=== PATIENT | female | born 1945 | race Caucasian/White ===

== ENCOUNTER 2018-04-12 12:00 | Inpatient (IN) | payer MEDICARE ==
[~2018-04-12] VITALS: Ht 170.2 cm; Wt 108.2 kg
[2018-04-12 11:40] VITALS: BP 156/69
[2018-04-12 11:57] LABS: BASOPHILS % (AUTO) 1.1 % (0.0-5.0); EOSINOPHILS % (AUTO) 2.4 % (0.0-8.0); HEMATOCRIT 35.7 % (36-48); LYMPHOCYTES % (AUTO) 19.2 % (21.0-51.0); MEAN CORPUSCULAR HEMOGLOBIN 26.4 pg (27.0-33.0); MEAN CORPUSCULAR HGB CONC 32.3 g/dL (32.0-36.0); MEAN CORPUSCULAR VOLUME 81.8 fL (79-99); MONOCYTES % (AUTO) 7.6 % (3.0-13.0); NEUTROPHILS % (AUTO) 69.7 % (40.0-77.0); NUCLEATED RED BLOOD CELLS 0.1 % (0.0-0.19); PLATELET COUNT (AUTO) 363 K/uL (130-400); RED BLOOD CELL COUNT(AUTO) 4.36 MIL/uL (4.00-5.50); RED CELL DISTRIBUTION WIDTH 14.8 % (11.0-15.5); WHITE BLOOD COUNT (AUTO) 10.8 K/uL (4.8-10.8)
[2018-04-12 12:04] LABS: CREATININE 1.3 mg/dL (0.5-1.5); POTASSIUM 4.3 mmol/L (3.5-5.1)
[2018-04-12] MEDS ORDERED: HUM10VIA6 SQ ×3 (12:34)
[2018-04-12] MEDS ORDERED: AEC81 PO (12:34)
[2018-04-12] MEDS ORDERED: METF-446 PO (12:34)
[2018-04-12] MEDS ORDERED: LEVO125T11 PO (12:34)
[2018-04-12] MEDS ORDERED: INVOK100TB PO (12:34)
[2018-04-12] MEDS ORDERED: ATEN1TAB4 PO (12:34)
[2018-04-12] MEDS ORDERED: RAMI5CAP66 PO (12:34)
[2018-04-12] MEDS ORDERED: ATOR40TA71 PO (12:34)
[2018-04-12] MEDS ORDERED: CYAN10009 PO (12:34)
[2018-04-12] MEDS ORDERED: CEFAZOLIN SODIUM 1 GM VIAL IVP SCH (13:15)
[2018-04-14] VITALS (24 sets, daily range): BP systolic 134–183; BP diastolic 68–90
[2018-04-14 06:36] LABS: BASOPHILS % (AUTO) 1.1 % (0.0-5.0); EOSINOPHILS % (AUTO) 2.6 % (0.0-8.0); HEMATOCRIT 34.3 % (36-48); MEAN CORPUSCULAR HEMOGLOBIN 26.6 pg (27.0-33.0); MEAN CORPUSCULAR HGB CONC 32.6 g/dL (32.0-36.0); MEAN CORPUSCULAR VOLUME 81.5 fL (79-99); MONOCYTES % (AUTO) 9.8 % (3.0-13.0); NEUTROPHILS % (AUTO) 66.5 % (40.0-77.0); PLATELET COUNT (AUTO) 349 K/uL (130-400); RED BLOOD CELL COUNT(AUTO) 4.21 MIL/uL (4.00-5.50); RED CELL DISTRIBUTION WIDTH 14.7 % (11.0-15.5); WHITE BLOOD COUNT (AUTO) 10.9 K/uL (4.8-10.8)
[2018-04-14] MEDS ORDERED: DURAMORPH PF1 MG/ML 10ML AMP IV ONE (06:36)
[2018-04-14] MEDS ORDERED: BUPIVACAINE/EPI/PF 0.25% 50 ML VIAL ONE (06:36)
[2018-04-14] MEDS ORDERED: THROMBIN-JMI 20000 UNIT KIT TP ONE (06:37)
[2018-04-14] MEDS ORDERED: BACITRACIN 50,000 UNIT VIAL ONE (06:37)
[2018-04-14] MEDS ORDERED: LACTATED RINGERS 1000ML 0 ML IV ONE (06:45)
[2018-04-14] MEDS ORDERED: CEFAZOLIN SODIUM 1 GM VIAL ONE (06:45)
[2018-04-14] MEDS ORDERED: SODIUM CHLORIDE 0.9% 1000ML 1,000 ML IV ONE (06:46)
[2018-04-14 06:53] LABS: CREATININE 1.2 mg/dL (0.5-1.5); POTASSIUM 3.8 mmol/L (3.5-5.1)
[2018-04-14] MEDS ORDERED: LIDOCAINE PF 2% 5ML ABBOJECT ONE (06:57)
[2018-04-14] MEDS ORDERED: DEXAMETHASONE SOD PHOSPHATE 10MG/ML 1ML VIAL ONE ×2 (06:57→07:00)
[2018-04-14] MEDS ORDERED: GLYCOPYRROLATE 1 MG/5 ML SYRINGE ONE (06:58)
[2018-04-14] MEDS ORDERED: PROPOFOL 10 MG/ML 20ML VIAL IV ONE (06:58)
[2018-04-14] MEDS ORDERED: MIDAZOLAM HCL 1 MG/ML 2ML VIAL ONE (06:58)
[2018-04-14] MEDS ORDERED: NEOSTIGMINE 5MG/5ML SYR IV ONE (06:59)
[2018-04-14] MEDS ORDERED: ROCURONIUM 10MG/1ML SYR 10 MG/ML ML ONE (06:59)
[2018-04-14] MEDS ORDERED: ONDANSETRON HCL 4 MG/2 ML VIAL ONE (06:59)
[2018-04-14] MEDS ORDERED: FENTANYL CITRATE PF 50 MCG/1 ML 2ML VIAL ONE ×2 (06:59→07:52)
[2018-04-14] MEDS ORDERED: EPHEDRINE SULFATE 50 MG/ML AMPULE ONE (07:01)
[2018-04-14] MEDS ORDERED: GENTAMICIN 80 MG/NS 100 ML PB 100 ML IV ONE (07:57)
[2018-04-14] MEDS ORDERED: LACTATED RINGERS 1000ML 1,000 ML IV SCH (10:11)
[2018-04-14] MEDS ORDERED: PROMETHAZINE HCL 25 MG/ML 1ML AMPULE IM PRN (10:15)
[2018-04-14] MEDS ORDERED: SODIUM CHLORIDE 0.9% 10 ML VIAL IVP PRN (10:15)
[2018-04-14] MEDS ORDERED: HYDROCODONE/ACETAMINOPHEN 5/325 MG TAB PO PRN (10:15)
[2018-04-14] MEDS ORDERED: MORPHINE SULFATE 2 MG/ML 1ML SYG IVP PRN (10:15)
[2018-04-14] MEDS ORDERED: LABETALOL 20 MG/4 ML DISP.SYRIN IV ONE (10:45)
[2018-04-14] MEDS: DEXAMETHASONE SOD PHOSPHATE 4 MG/ML 1ML VIAL IVP SCH ×3 (11:30→21:22)
[2018-04-14] MEDS ORDERED: INSULIN HUMULIN 70/30 100 UNIT/ML 3ML SQ SCH ×3 (12:00→21:00)
[2018-04-14] MEDS ORDERED: DEXTROSE 50%-WATER 50 ML DISP.SYRIN IV PRN (12:15)
[2018-04-14] MEDS ORDERED: GLUCAGON 1MG KIT 1 MG ML IM PRN (12:15)
[2018-04-14] MEDS: INSULIN HUMULIN R 100 UNIT/ML 3ML SQ SCH ×3 (13:16→21:21)
[2018-04-14] MEDS ORDERED: PHARMACY COMMUNICATION MISC SCH (13:30)
[2018-04-14] MEDS ORDERED: INSULIN HUMULIN R 100 UNIT/ML 3ML SQ SCH (16:30)
[2018-04-14] MEDS: CEFAZOLIN SODIUM 1 GM VIAL IVP SCH (17:29)
[2018-04-14] MEDS: METFORMIN HCL 500 MG TABLET PO SCH (17:29)
[2018-04-14] MEDS ORDERED: CHLORTHALIDONE PO SCH (21:00)
[2018-04-14] MEDS ORDERED: ATENOLOL PO SCH (21:00)
[2018-04-14] MEDS ORDERED: LISINOPRIL 20 MG TABLET PO SCH (21:00)
[2018-04-14] MEDS ORDERED: ATORVASTATIN CALCIUM 40 MG TABLET PO SCH (21:00)
[2018-04-15] MEDS: DEXAMETHASONE SOD PHOSPHATE 4 MG/ML 1ML VIAL IVP SCH ×2 (04:08→09:25)
[2018-04-15 04:20] VITALS: BP 129/68
[2018-04-15] MEDS: INSULIN HUMULIN R 100 UNIT/ML 3ML SQ SCH ×2 (06:35→12:59)
[2018-04-15] MEDS ORDERED: LEVOTHYROXINE 125 MCG TABLET PO SCH (09:00)
[2018-04-15] MEDS ORDERED: CYANOCOBALAMIN (VITAMIN B-12) 1,000 MCG TABLET PO SCH (09:00)
[2018-04-15] MEDS ORDERED: ASPIRIN 81 MG EC TAB PO SCH (09:00)
[2018-04-15] MEDS ORDERED: INSULIN HUMULIN 70/30 100 UNIT/ML 3ML SQ SCH (09:00)
[2018-04-15] MEDS ORDERED: **HM** INVOKANA 100MG PO SCH (09:00)
[2018-04-15 09:10] VITALS: BP 148/80
[2018-04-15] MEDS: METFORMIN HCL 500 MG TABLET PO SCH (09:18)
[2018-04-15 12:15] VITALS: BP 137/72
== END 2018-04-15 16:16 | disposition home health service (06) | DRG 520 ==
LOC: EDSTATUS 12:00 → DAHIP 04-14 06:00 → 4AH 04-14 11:13 → EDSEX 04-14 12:00
PROVIDERS: ADMIT Neurological Surgery; ATTEND Neurological Surgery
PROC: 0SB20ZZ Excision of Lumbar Vertebral Disc, Open Approach (ICD-10-PCS; principal; 2018-04-14 07:20)
PROC: 01NB0ZZ Release Lumbar Nerve, Open Approach (ICD-10-PCS; 2018-04-14 07:20)
PROC: 4A10X4G Monitoring of Central Nervous Electrical Activity, Intraoperative, External Approach (ICD-10-PCS; 2018-04-14 07:20)
DX: M51.26 Other intervertebral disc displacement, lumbar region (principal); M48.061 Spinal stenosis, lumbar region without neurogenic claudication; I10 Essential (primary) hypertension; E11.9 Type 2 diabetes mellitus without complications; E03.9 Hypothyroidism, unspecified; E78.5 Hyperlipidemia, unspecified; Z90.710 Acquired absence of both cervix and uterus; Z90.89 Acquired absence of other organs; Z90.49 Acquired absence of other specified parts of digestive tract; Z98.49 Cataract extraction status, unspecified eye; Z79.82 Long term (current) use of aspirin; Z79.899 Other long term (current) drug therapy; Z79.84 Long term (current) use of oral hypoglycemic drugs
CPT/HCPCS: 36415; 72020; 80048; 82948; 85025; 87077; 87088; 87186; A4344; J0690; J1100; J1580; J1815; J2001; J2250; J2274; J2405; J2704; J2710; J3010; J3490; J7030; J7120